=== PATIENT | male | born 1955 | race Caucasian/White ===

== ENCOUNTER 2018-08-20 12:39 | Emergency (ER) | payer SELFPAY ==
--- OUTSIDE RECORDS SUMMARY | 2018-08-20 12:42 | XMS REPORT | Clinical Summary ---
:1955 Author Organization [facility] Address [address] [place] [address] Care Team Providers Name Role Phone Mg Wyman DO Primary Care Provider Allergies No Known Allergies Medications No known medications Active Problems No known active problems Encounters Date Type Specialty Care Team Description 11/14/2017 Office Visit Family Medicine Mg Wyman DO Tinnitus of both ears (Primary Dx); Discomfort of both ears after 08/19/2017 Family History Medical History Relation Name Comments Cancer Father Cancer Mother Diabetes Mother Cancer Paternal Grandfather Cancer Paternal Grandmother Relation Name Status Comments Father Mother Paternal Grandfather Paternal Grandmother Social History Tobacco Use Types Packs/Day Years Used Date Former Smoker Smokeless Tobacco: Former User Alcohol Use Drinks/Week oz/Week Comments No Sex Assigned at Date Recorded Not on file Job Start Date Occupation Industry Not on file Not on file Not on file Travel History Travel Start Travel End No recent travel history available. Last Filed Vital Signs Vital Sign Reading Time Taken Blood Pressure 120/82 11/14/2017 9:23 AM CDT Pulse 71 11/14/2017 9:06 AM CDT Temperature 37 C (98.6 F) 11/14/2017 9:06 AM CDT Respiratory Rate 18 11/14/2017 9:06 AM CDT Oxygen Saturation - - Inhaled Oxygen Concentration - - Weight 129 kg (284 lb 9.6 oz) 11/14/2017 9:06 AM CDT Height 188 cm (6' 2") 11/14/2017 9:06 AM CDT Body Mass Index 36.54 11/14/2017 9:06 AM CDT Plan of Treatment Health Maintenance Due Date Last Done Comments COLON CANCER SCREENING 2004 SHINGLES VACCINES (1 of 2) 2004 INFLUENZA VACCINE 02/13/2018 Results Not on fileafter 08/19/2017 Insurance Payer Benefit Plan / Group Subscriber ID Type Phone Address [employer] [facility] xxxxxxxxxx [employer] (Work) [phone] Advance Directives Patient has advance care planning documents on file. For more information, please contact:Rene Pereira[address] [place] [address]
[2018-08-20 12:57] LABS: Absolute Lymphocytes (CBC) 1.9 K/uL (0.7-4.9); Absolute Monocytes 0.6 K/uL (0.1-1.3); Absolute Neutrophil 5.3 K/uL (1.8-8.0); Basophils % 1.1 % (0-1.3); Hematocrit 47.3 % (39.6-49.0); Lymphocytes % 23.6 % (15.3-44.8); MPV 8.3 fL (7.6-11.3); Monocytes % 7.8 % (3.3-12.3); RBC Red Blood Cell Count 4.97 M/uL (4.33-5.43)
[2018-08-20] MEDS ORDERED: Ringers Lactate 1,000 ML IV ONE (12:58)
[2018-08-20] MEDS ORDERED: HYDROMORPHONE HCL 1 MG/ML INJ ONE (12:58)
[2018-08-20] MEDS ORDERED: NA CHLORIDE 0.9% 1,000 ML ONE (12:58)
[2018-08-20] MEDS ORDERED: ONDANSETRON 4 MG/2 ML VIAL ONE (12:58)
[2018-08-20 13:13] LABS: Potassium 3.8 mmol/L (3.5-5.1)
[2018-08-20] MEDS ORDERED: MEPERIDINE HCL 50 MG/ML AMP ONE (13:24)
[2018-08-20] MEDS ORDERED: PROMETHAZINE 25 MG/ML VIAL ONE (13:48)
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
== END 2018-08-20 15:53 | disposition home or self-care (01) ==
LOC: ER 12:39
DX: T22.10XA Burn of first degree of shoulder and upper limb, except wrist and hand, unspecified site, initial encounter (principal); T20.10XA Burn of first degree of head, face, and neck, unspecified site, initial encounter; T31.11 Burns involving 10-19% of body surface with 10-19% third degree burns; X08.8XXA Exposure to other specified smoke, fire and flames, initial encounter
CPT/HCPCS: 36415; 80048; 85025; 96361; 96374; 96375; 99291; 99292; J1170; J2175; J2405; J2550; J7030